=== PATIENT | female | born 1990 | race Two or more races ===

== ENCOUNTER 2019-04-30 10:44 | Inpatient (IN) | payer MEDICAID ==
[~2019-04-30] VITALS: Ht 160 cm; Wt 60.3 kg
--- NOTE | 2019-04-30 11:00 | NUR ---
ED Nurse Note: PATIENT WALKED INTO ED FROM HOME C/O DIFFICULTY BREATHING, DIFFUSE CHEST PAIN FOR 3 DAYS. PATIENT IS ALERT AWAKE X4 AMBULATORY, SPEAKING IN FULL SENTENCES. PATIENT ON A [employer].
[2019-04-30 11:12] VITALS: BP 111/81
[2019-04-30] MEDS ORDERED: Albuterol ud Inhalation HHN ONE (11:45)
--- NOTE | 2019-04-30 12:04 | Diagnostic Imaging Report ---
Indication: Redness of breath Technique: XRAY Chest 1v Comparison: None Findings: Heart size and mediastinal contours are within normal limits for AP technique. There is no focal airspace consolidation, pneumothorax or pleural effusion. Osseous structures demonstrate no acute abnormality. Impression: No radiographic evidence of acute cardiopulmonary disease.
--- NOTE | 2019-04-30 12:18 | NUR ---
ED Nurse Note: RT at bedside for breathing treatment.
--- NOTE | 2019-04-30 12:30 | NUR ---
ED Nurse Note: RT/ Dr. Patel notified for patient's HR going up to 120-140. Discontinued albuterol tx. Dr. Patel notified about that the patient is anxious.
[2019-04-30 12:54] LABS: BASOPHILS % (AUTO) 0.7 % (0.0-2.0); EOSINOPHILS % (AUTO) 1.7 % (0.0-3.0); HEMOGLOBIN 14.5 G/DL (12.0-16.0); MEAN CORPUSCULAR VOLUME 88 FL (80-99); MONOCYTES % (AUTO) 5.2 % (1.0-10.0); NEUTROPHILS % (AUTO) 61.5 % (45.0-75.0); PLATELET COUNT 328 K/UL (150-450); RED BLOOD COUNT 4.88 M/UL (4.20-5.40); RED CELL DISTRIBUTION WIDTH 11.4 % (11.6-14.8); WHITE BLOOD COUNT 10.5 K/UL (4.8-10.8)
[2019-04-30 13:04] LABS: ANION GAP 12 mmol/L (5-15); BLOOD UREA NITROGEN 16 mg/dL (7-18); CALCIUM 9.6 MG/DL (8.5-10.1); CARBON DIOXIDE 24 MMOL/L (21-32); CHLORIDE 103 MMOL/L (98-107); CREATININE 0.6 MG/DL (0.55-1.30); SODIUM 139 MMOL/L (136-145)
[2019-04-30 13:08] LABS: ALANINE AMINOTRANSFERASE 39 U/L (12-78); ALBUMIN 3.9 G/DL (3.4-5.0); ALBUMIN/GLOBULIN RATIO 0.9 (1.0-2.7); ALKALINE PHOSPHATASE 84 U/L (46-116); ASPARTATE AMINO TRANSFERASE 19 U/L (15-37); BILIRUBIN,TOTAL 0.5 MG/DL (0.2-1.0)
[2019-04-30] MEDS ORDERED: LORazepam 1mg tab ONE (13:08)
[2019-04-30] MEDS ORDERED: LORazepam 1mg tab ORAL ONE (13:15)
[2019-04-30 13:29] VITALS: BP 160/125
[2019-04-30 14:11] VITALS: BP 107/63
--- NOTE | 2019-04-30 14:11 | NUR ---
ED Nurse Note: patient resting in bed.
[2019-04-30] MEDS ORDERED: Omnipaque-300 100ml vial INJ ONE (14:45)
--- NOTE | 2019-04-30 15:32 | NUR ---
ED Nurse Note: urine and additional blood work sent to lab. per Dr. Bundy, patient is ok to go up now and he will follow up with the CTA
[2019-04-30 15:37] VITALS: BP 106/68
--- NOTE | 2019-04-30 15:37 | NUR ---
ED Nurse Note: patient transferred to 2E with all of the belongings, on ACLS protocol.
--- NOTE | 2019-04-30 15:38 | Emergency Room Report ---
History of Present Illness General Chief Complaint: Upper Respiratory Illness Source: Patient Present Illness HPI Patient states that for the past 3 days she has had shortness of breath and felt congested. She denies cough. She states she has pain with inspiration and expiration. She also feels very anxious. She feels lightheaded. She denies fever or chills. She denies nausea or vomiting. She denies sore throat. She denies headache or neck pain. She has no other complaints. Allergies: Coded Allergies: No Known Allergies (Unverified , 04/30/19) Patient History Past Medical History: none, see triage record Social History: Denies: smoking, alcohol use, drug use Reviewed Nursing Documentation: PMH: Agreed; PSxH: Agreed Nursing Documentation-PMH Hx Cardiac Problems: No - bronchitis Review of Systems All Other Systems: negative except mentioned in HPI Physical Exam Vital Signs Date Time Temp Pulse Resp B/P (MAP) Pulse Ox O2 Delivery O2 Flow Rate FiO2 04/30/19 10:51 98.2 94 16 120/85 (97) 96 Room Air Sp02 EP Interpretation: reviewed, normal General Appearance: no apparent distress, alert, GCS 15, non-toxic Head: normocephalic, atraumatic Eyes: bilateral eye normal inspection, bilateral eye PERRL ENT: hearing grossly normal, normal pharynx, no angioedema, normal voice Neck: full range of motion, supple/symm/no masses Respiratory: chest non-tender, lungs clear, normal breath sounds, no respiratory distress, no retraction, no accessory muscle use, speaking full sentences Cardiovascular #1: no edema, tachycardia Gastrointestinal: normal bowel sounds, non tender, soft, non-distended, no guarding, no rebound Rectal: deferred Musculoskeletal: back normal, normal range of motion, gait/station normal, non- tender Neurologic: alert, motor strength/tone normal, oriented x3, sensory intact, responsive, speech normal Psychiatric: judgement/insight normal, memory normal, mood/affect normal, no suicidal/homicidal ideation Skin: no rash, normal color Medical Decision Making Diagnostic Impression: Primary Impression: Shortness of breath Additional Impressions: Chest pain Tachycardia ER Course This patient's heart rate was incredibly variable. Initial heart rate was in the 120s to 130s, however, the patient will regularly spike into the 160s to 180s. Patient also seemed very anxious but it was difficult to determine whether the patient was anxious first or after her heart rate elevated. I was unable to obtain a twelve-lead EKG during 1 of the episodes because by the time the twelve-lead EKG was performed the patient was in a sinus tachycardia in the 130s. The patient may have inappropriate sinus tachycardia, however, given how rapid her heart rate and how variable the heart rate was throughout her ED course, I felt that she should be admitted overnight to record her telemetry and be further assessed by cardiology. The patient was very uncomfortable during the rapid tachycardia episodes and she has no medical insurance and is unable to follow-up as an outpatient in a timely manner. Therefore, I felt this patient should be admitted. Chest x-ray, lab work, CT chest, thyroid panel , d-dimer were all unremarkable. She is admitted for further evaluation and treatment. Laboratory Tests Test 04/30/19 12:41 04/30/19 15:05 04/30/19 15:26 White Blood Count 10.5 K/UL (4.8-10.8) Red Blood Count 4.88 M/UL (4.20-5.40) Hemoglobin 14.5 G/DL (12.0-16.0) Hematocrit 43.0 % (37.0-47.0) Mean Corpuscular Volume 88 FL (80-99) Mean Corpuscular Hemoglobin 29.7 PG (27.0-31.0) Mean Corpuscular Hemoglobin Concent 33.8 G/DL (32.0-36.0) Red Cell Distribution Width 11.4 % (11.6-14.8) L Platelet Count 328 K/UL (150-450) Mean Platelet Volume 5.3 FL (6.5-10.1) L Neutrophils (%) (Auto) 61.5 % (45.0-75.0) Lymphocytes (%) (Auto) 31.0 % (20.0-45.0) Monocytes (%) (Auto) 5.2 % (1.0-10.0) Eosinophils (%) (Auto) 1.7 % (0.0-3.0) Basophils (%) (Auto) 0.7 % (0.0-2.0) D-Dimer < 0.19 mg/L FEU Sodium Level 139 MMOL/L (136-145) Potassium Level 3.0 MMOL/L (3.5-5.1) L Chloride Level 103 MMOL/L (98-107) Carbon Dioxide Level 24 MMOL/L (21-32) Anion Gap 12 mmol/L (5-15) Blood Urea Nitrogen 16 mg/dL (7-18) Creatinine 0.6 MG/DL (0.55-1.30) Estimate Glomerular Filtration Rate > 60 mL/min (>60) Glucose Level 96 MG/DL (74-106) Calcium Level 9.6 MG/DL (8.5-10.1) Total Bilirubin 0.5 MG/DL (0.2-1.0) Aspartate Amino Transferase (AST) 19 U/L (15-37) Alanine Aminotransferase (ALT) 39 U/L (12-78) Alkaline Phosphatase 84 U/L (46-116) Total Protein 8.2 G/DL (6.4-8.2) Albumin 3.9 G/DL (3.4-5.0) Globulin 4.3 g/dL Albumin/Globulin Ratio 0.9 (1.0-2.7) L Urine Color Pale yellow Urine Appearance Slightly cloudy Urine pH 6 (4.5-8.0) Urine Specific [place] 1.010 (1.005-1.035) Urine Protein 1+ (NEGATIVE) H Urine Glucose (UA) Negative (NEGATIVE) Urine Ketones Negative (NEGATIVE) Urine Blood 5+ (NEGATIVE) H Urine Nitrite Negative (NEGATIVE) Urine Bilirubin Negative (NEGATIVE) Urine Urobilinogen Normal MG/DL (0.0-1.0) Urine Leukocyte Esterase Negative (NEGATIVE) Urine RBC 20-30 /HPF (0 - 2) H Urine WBC 0-2 /HPF (0 - 2) Urine Squamous Epithelial Cells Occasional /LPF Urine Bacteria Occasional /HPF (NONE) Urine HCG, Qualitative Negative (NEGATIVE) Urine Opiates Screen Negative (NEGATIVE) Urine Barbiturates Screen Negative (NEGATIVE) Phencyclidine (PCP) Screen Negative (NEGATIVE) Urine Amphetamines Screen Negative (NEGATIVE) Urine Benzodiazepines Screen Negative (NEGATIVE) Urine Cocaine Screen Negative (NEGATIVE) Urine Marijuana (THC) Screen Negative (NEGATIVE) Troponin I 0.000 ng/mL (0.000-0.056) Thyroid Stimulating Hormone (TSH) 0.282 uiU/mL (0.358-3.740) Free Thyroxine 0.99 NG/DL (0.76-1.46) Free Triiodothyronine 3.1 pg/mL (2.3-4.2) Laboratory Tests Test 04/30/19 12:41 04/30/19 15:05 White Blood Count 10.5 K/UL (4.8-10.8) Red Blood Count 4.88 M/UL (4.20-5.40) Hemoglobin 14.5 G/DL (12.0-16.0) Hematocrit 43.0 % (37.0-47.0) Mean Corpuscular Volume 88 FL (80-99) Mean Corpuscular Hemoglobin 29.7 PG (27.0-31.0) Mean Corpuscular Hemoglobin Concent 33.8 G/DL (32.0-36.0) Red Cell Distribution Width 11.4 % (11.6-14.8) L Platelet Count 328 K/UL (150-450) Mean Platelet Volume 5.3 FL (6.5-10.1) L Neutrophils (%) (Auto) 61.5 % (45.0-75.0) Lymphocytes (%) (Auto) 31.0 % (20.0-45.0) Monocytes (%) (Auto) 5.2 % (1.0-10.0) Eosinophils (%) (Auto) 1.7 % (0.0-3.0) Basophils (%) (Auto) 0.7 % (0.0-2.0) D-Dimer < 0.19 mg/L FEU Sodium Level 139 MMOL/L (136-145) Potassium Level 3.0 MMOL/L (3.5-5.1) L Chloride Level 103 MMOL/L (98-107) Carbon Dioxide Level 24 MMOL/L (21-32) Anion Gap 12 mmol/L (5-15) Blood Urea Nitrogen 16 mg/dL (7-18) Creatinine 0.6 MG/DL (0.55-1.30) Estimate Glomerular Filtration Rate > 60 mL/min (>60) Glucose Level 96 MG/DL (74-106) Calcium Level 9.6 MG/DL (8.5-10.1) Total Bilirubin 0.5 MG/DL (0.2-1.0) Aspartate Amino Transferase (AST) 19 U/L (15-37) Alanine Aminotransferase (ALT) 39 U/L (12-78) Alkaline Phosphatase 84 U/L (46-116) Total Protein 8.2 G/DL (6.4-8.2) Albumin 3.9 G/DL (3.4-5.0) Globulin 4.3 g/dL Albumin/Globulin Ratio 0.9 (1.0-2.7) L Urine Color Pending Urine Appearance Pending Urine pH Pending Urine Specific [place] Pending Urine Protein Pending Urine Glucose (UA) Pending Urine Ketones Pending Urine Blood Pending Urine Nitrite Pending Urine Bilirubin Pending Urine Urobilinogen Pending Urine Leukocyte Esterase Pending Urine HCG, Qualitative Pending EKG Diagnostic Results Rate: tachycardiac Rhythm: other - S.tachycardia ST Segments: no acute changes Rhythm Strip Diag. Results EP Interpretation: yes Rate: 130's Rhythm: no PVC's, no ectopy, other - S.tachycardia Chest X-Ray Diagnostic Results Chest X-Ray Diagnostic Results : Chest X-Ray Ordered: Yes # of Views/Limited/Complete: 1 View Indication: Chest Pain EP Interpretation: Yes Interpretation: no consolidation, no effusion, no pneumothorax, no acute cardiopulmonary disease Impression: No acute disease Electronically Signed by: Lana Patel DO CT/MRI/US Diagnostic Results CT/MRI/US Diagnostic Results : Imaging Test Ordered: CT Chest Impression No PE. See official report in the electronic medical record. Last Vital Signs Date Time Temp Pulse Resp B/P (MAP) Pulse Ox O2 Delivery O2 Flow Rate FiO2 04/30/19 14:11 98.2 103 20 107/63 99 Room Air Disposition: ADMITTED INPATIENT Condition: Stable Scripts No Active Prescriptions or Reported Meds Referrals: NOT CHOSEN IPA/,REFERRING (PCP) Lana Patel DO Apr 30, 2019 15:38
--- NOTE | 2019-04-30 15:40 | NUR ---
NURSE NOTES: Received report from Adali Whittaker RN. Patient transferred from ED to tele. monitoring and evaluation advisor on, Patient AOx4, on room air, ST with HR 110. Endorsed patient schedule for CTA chest. VS at the time of arrival T 97.5, HR 110, RR 16, O2 98%, BP 119/75. Patient skin is intact, able to amb[facility] IV on Right AC 20G, asymptomatic, patent, intact. Bed in lowest position, side rails upx2, call light within reach. Will continue to monitor.
[2019-04-30 15:42] LABS: APPEARANCE,URINE SLIGHTLY CLOUDY; BILIRUBIN, URINE NEGATIVE (NEGATIVE); COLOR,URINE PALE YELLOW; GLUCOSE, URINE (UA) NEGATIVE (NEGATIVE); KETONES,URINE NEGATIVE (NEGATIVE); LEUKOCYTE ESTERASE ,URINE NEGATIVE (NEGATIVE); NITRITE,URINE NEGATIVE (NEGATIVE); PH,URINE 6 (4.5-8.0); PROTEIN,URINE 1+ (NEGATIVE); UROBILINOGEN,URINE NORMAL MG/DL (0.0-1.0)
--- NOTE | 2019-04-30 17:22 | NUR ---
NURSE NOTES: Order received from Dr. Trimble. Order acknowledged, noted, and carried out.
[2019-04-30] MEDS ORDERED: Morphine Sulfate 2mg/ml Inj(IV/IM USE ONLY) IVP PRN (17:30)
[2019-04-30] MEDS ORDERED: LORazepam Inj 2mg/ml 1ml IV PRN (17:30)
[2019-04-30] MEDS ORDERED: Miralax 17gm pkt ORAL PRN (17:30)
[2019-04-30] MEDS ORDERED: Zolpidem 5mg tab ORAL PRN (17:30)
--- NOTE | 2019-04-30 17:51 | History & Physical ---
History and Physical History & Physicial Dictated for Int Med-DR Vallejo no. [id number]. Timoteo Godwin MD Apr 30, 2019 17:51
--- NOTE | 2019-04-30 18:00 | NUR ---
NURSE NOTES: Dr. Trimble made aware of K level today, no new order given at this time, Will continue to monitor.
[2019-04-30] MEDS: Docusate 100mg cap ORAL SCH (18:25)
[2019-04-30] MEDS: Lactulose 20gm/30ml UDC ORAL SCH (18:26)
--- NOTE | 2019-04-30 19:25 | NUR ---
NURSE NOTES: Received pt and report from JENNIFER Ybarra. Observed pt resting in bed with both eyes open and watching television. Pt is A/Ox4. conveyor monitor is in placed, IV site intact, asymptomatic, and patent. Bed is in the lowest position and locked. Call light and bedside table is within reach. No signs/symptoms of acute distress noted at this time. Will continue plan of care.
--- NOTE | 2019-04-30 19:35 | NUR ---
HAND-OFF: Report given to JENNIFER Hook.
[2019-04-30 20:00] VITALS: BP 111/76
--- NOTE | 2019-04-30 20:25 | Cardiology Progress Note ---
Assessment/Plan Assessment/Plan [id number] Objective Last 24 Hour Vital Signs Date Time Temp Pulse Resp B/P (MAP) Pulse Ox O2 Delivery O2 Flow Rate FiO2 04/30/19 16:16 Room Air 04/30/19 16:00 110 04/30/19 15:37 98.2 112 22 106/68 99 Room Air 04/30/19 15:37 98.2 112 22 106/68 99 Room Air 04/30/19 14:11 98.2 103 20 107/63 99 Room Air 04/30/19 14:08 103 20 Room Air 04/30/19 13:29 98.2 118 19 160/125 93 Room Air 04/30/19 12:18 81 17 100 Room Air 93 15 100 04/30/19 11:12 98.2 93 18 111/81 98 Room Air 04/30/19 10:51 98.2 94 16 120/85 (97) 96 Room Air Laboratory Tests Test 04/30/19 12:41 04/30/19 15:05 04/30/19 15:26 White Blood Count 10.5 K/UL (4.8-10.8) Red Blood Count 4.88 M/UL (4.20-5.40) Hemoglobin 14.5 G/DL (12.0-16.0) Hematocrit 43.0 % (37.0-47.0) Mean Corpuscular Volume 88 FL (80-99) Mean Corpuscular Hemoglobin 29.7 PG (27.0-31.0) Mean Corpuscular Hemoglobin Concent 33.8 G/DL (32.0-36.0) Red Cell Distribution Width 11.4 % (11.6-14.8) L Platelet Count 328 K/UL (150-450) Mean Platelet Volume 5.3 FL (6.5-10.1) L Neutrophils (%) (Auto) 61.5 % (45.0-75.0) Lymphocytes (%) (Auto) 31.0 % (20.0-45.0) Monocytes (%) (Auto) 5.2 % (1.0-10.0) Eosinophils (%) (Auto) 1.7 % (0.0-3.0) Basophils (%) (Auto) 0.7 % (0.0-2.0) D-Dimer < 0.19 mg/L FEU Sodium Level 139 MMOL/L (136-145) Potassium Level 3.0 MMOL/L (3.5-5.1) L Chloride Level 103 MMOL/L (98-107) Carbon Dioxide Level 24 MMOL/L (21-32) Anion Gap 12 mmol/L (5-15) Blood Urea Nitrogen 16 mg/dL (7-18) Creatinine 0.6 MG/DL (0.55-1.30) Estimat Glomerular Filtration Rate > 60 mL/min (>60) Glucose Level 96 MG/DL (74-106) Calcium Level 9.6 MG/DL (8.5-10.1) Total Bilirubin 0.5 MG/DL (0.2-1.0) Aspartate Amino Transf (AST/SGOT) 19 U/L (15-37) Alanine Aminotransferase (ALT/SGPT) 39 U/L (12-78) Alkaline Phosphatase 84 U/L (46-116) Total Protein 8.2 G/DL (6.4-8.2) Albumin 3.9 G/DL (3.4-5.0) Globulin 4.3 g/dL Albumin/Globulin Ratio 0.9 (1.0-2.7) L Urine Color Pale yellow Urine Appearance Slightly cloudy Urine pH 6 (4.5-8.0) Urine Specific [place] 1.010 (1.005-1.035) Urine Protein 1+ (NEGATIVE) H Urine Glucose (UA) Negative (NEGATIVE) Urine Ketones Negative (NEGATIVE) Urine Blood 5+ (NEGATIVE) H Urine Nitrite Negative (NEGATIVE) Urine Bilirubin Negative (NEGATIVE) Urine Urobilinogen Normal MG/DL (0.0-1.0) Urine Leukocyte Esterase Negative (NEGATIVE) Urine RBC 20-30 /HPF (0 - 2) H Urine WBC 0-2 /HPF (0 - 2) Urine Squamous Epithelial Cells Occasional /LPF Urine Bacteria Occasional /HPF (NONE) Urine HCG, Qualitative Negative (NEGATIVE) Urine Opiates Screen Negative (NEGATIVE) Urine Barbiturates Screen Negative (NEGATIVE) Phencyclidine (PCP) Screen Negative (NEGATIVE) Urine Amphetamines Screen Negative (NEGATIVE) Urine Benzodiazepines Screen Negative (NEGATIVE) Urine Cocaine Screen Negative (NEGATIVE) Urine Marijuana (THC) Screen Negative (NEGATIVE) Troponin I 0.000 ng/mL (0.000-0.056) Thyroid Stimulating Hormone (TSH) 0.282 uiU/mL (0.358-3.740) Free Thyroxine 0.99 NG/DL (0.76-1.46) Free Triiodothyronine 3.1 pg/mL (2.3-4.2) Nakul Rodriguez MD Apr 30, 2019 20:25
--- NOTE | 2019-04-30 20:48 | NUR ---
NURSE NOTES: Received orders from Dr. Charlton. Will note and carry out.
[2019-04-30] MEDS ORDERED: Sodium Chloride for KCL Premix X 1hr IV SCH (21:00)
[2019-04-30] MEDS: NS w/KCl 20mEq 1000ml 1,000 ML IV SCH (21:26)
--- NOTE | 2019-04-30 21:30 | Consultation ---
DATE OF CONSULTATION: 04/30/2019 CARDIOLOGY CONSULTATION CONSULTING PHYSICIAN: Nakul Rodriguez M.D. REFERRING PHYSICIAN: Faraz Trimble M.D. HISTORY OF PRESENT ILLNESS: This is a 28-year-old female with history of congestion, shortness of breath, and chest pain that has been going on for approximately 3 days. Congestion wakes her up at night and the pain seems to be little worse when she takes a deep breath, but the pain has been going on for approximately 3 days. No orthopnea. Uses one pillow at night. She may have had some PND. When she stands up, she gets short of breath. When she walks, she does not seem to be short of breath. There is no palpitations. No dizziness or lightheadedness. Denies any other medical problems. SOCIAL HISTORY: She does not smoke, drink, or use drugs. MEDICATIONS: None. REVIEW OF SYSTEMS: GASTROINTESTINAL: Negative. GENITOURINARY: Negative. PULMONARY: Negative. CONSTITUTIONAL: Negative. NEUROLOGIC: Negative. PHYSICAL EXAMINATION: GENERAL: Shows to be young female, in no respiratory distress. Overweight. NECK: Supple. No jugular venous distention. LUNGS: Clear to auscultation percussion. No CVA or spine tenderness. CARDIAC: Regular rate and rhythm. No heaves, thrills, gallops, or rubs noted. ABDOMEN: Soft, nontender. Positive bowel sounds. EXTREMITIES: There is no clubbing, cyanosis, or edema. In the emergency room, she apparently had an episode of tachycardia, felt to be sinus, questionable SVT although was able to be reported. The patient did have a x-ray in the emergency room that showed no electrocardiographic evidence of acute disease. White count 10.5, hemoglobin 14.5, and platelet count of 328. Sodium is 139, potassium 3.0, chloride 103, bicarb 24, BUN 16, creatinine 0.6, and glucose of 96. Liver function tests are normal. TSH is 0.282, T4 0.99, T3 of 3.0. Troponin of 0.00. D-dimer was normal. Tox screen was normal. Urinalysis shows 20 to 30 rbc's, 0 to 2 wbc's. A chest x-ray was showing no evidence of acute cardiopulmonary disease. EKG shows sinus tachycardia at a rate of 138, no ST or T-wave abnormalities of any significant degree. ASSESSMENT AND PLAN: 1. Chest pain. 2. Sinus tachycardia. 3. Congestion. This patient was seen in cardiology consultation. Some of the symptoms that she described does not appear physiologic. Nevertheless workup was initiated. The fact that she has a normal D-dimers, we can guess it as a pulmonary embolism and/or a deep venous thrombosis. She will have serial enzymes. An echocardiogram will be ordered for tomorrow morning. She will be monitored on telemetry to see if any episodes of tachycardia were ensued. TSH was normal. Her thyroid function tests otherwise were unremarkable. I will follow the patient along with you. Nakul Rodriguez M.D. DR: CIERRA JOB#: [id number] CC:
[2019-05-01] VITALS: BP 108/68
[2019-05-01 04:00] VITALS: BP 107/65
--- NOTE | 2019-05-01 04:15 | History and Physical Report ---
DATE OF ADMISSION: 04/30/2019 CHIEF COMPLAINT: The patient is a 28-year-old female, who presents with a chief complaint of shortness of breath and nasal congestion. HISTORY OF PRESENT ILLNESS: The patient states this began approximately 3 weeks ago. The patient had cough and pharyngitis. The patient was given amoxicillin for 10 days. The patient finished amoxicillin one week previously. The patient then began to experience left-sided sinus congestion. The patient is unable to breathe out of the left sinus. The patient also complains of shortness of breath. The patient states she has chest pain with deep inspiration. The patient presented to [place] emergency room. The patient is admitted with pleuritic chest pain and probable bronchitis. REVIEW OF SYSTEMS: CONSTITUTIONAL: The patient denies weight loss or weight gain. The patient denies fever or chills. HEENT: The patient denies ear or throat pain. The patient denies headache. CARDIOVASCULAR: The patient denies palpitations or chest pain. CHEST: The patient complains of shortness of breath as above. The patient denies wheezes. ABDOMEN: The patient denies nausea, vomiting, diarrhea, or constipation. GENITOURINARY: The patient denies dysuria or increased frequency of urination. NEUROMUSCULAR: The patient denies seizures or generalized weakness. CHEST: The patient complains of shortness of breath as above. The patient complains of pleuritic chest pain as above. The patient denies wheezes. ABDOMEN: The patient denies nausea, vomiting, diarrhea, or constipation. GENITOURINARY: The patient denies dysuria or increased frequency of urination. NEUROMUSCULAR: The patient denies seizures or generalized weakness. PAST MEDICAL HISTORY: The patient denies. PAST SURGICAL HISTORY: The patient denies. CURRENT MEDICATIONS: The patient denies. ALLERGIES: No known drug allergies. 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 The patient denies tobacco or alcohol use. PHYSICAL EXAMINATION: VITAL SIGNS: Temperature 98.2, respirations 19, pulse 81 to 118, blood pressure 160/125. GENERAL: The patient is well-developed and well-nourished female, in no apparent distress. HEENT: Eyes, pupils are equal and responsive to light and accommodation. Extraocular movements are intact. NECK: Supple without lymphadenopathy. CHEST: Lungs are clear to auscultation bilaterally without wheezes or rales. CARDIOVASCULAR: Regular rate. S1 and S2 are normal without murmurs, rubs, or gallops. ABDOMEN: Soft, nontender, and nondistended. Positive bowel sounds. No evidence of hepatosplenomegaly. Currently, no rebound or guarding noted. EXTREMITIES: Negative for clubbing, cyanosis, or edema. RECTAL/GENITAL: Not performed. NEUROLOGIC: Cranial nerves II through XII are grossly intact without focal deficits. Motor strength is 5/5 bilaterally. Deep tendon reflexes are 2+ plantar. LABORATORY STUDIES: WBC 10.5, hemoglobin 14.5, hematocrit 43.0, platelets 328,000. Sodium 139, potassium 3.0, chloride 103, CO2 24, BUN 16, creatinine 0.6, glucose 96. Troponin 0.0. Chest x-ray is reported as no acute disease. ASSESSMENT: This is a 28-year-old female with: 1. Shortness of breath. 2. Pleuritic chest pain. 3. Hypertension. TREATMENT: 1. Shortness of breath/pleuritic chest pain. A Pulmonary consultation has been obtained with Dr. Faraz Trimble. This may be secondary to bronchitis. We will follow recommendations of Pulmonary. 2. Hypertension may be secondary to agitation. Clonidine will be offered as needed for systolic greater than 150 or diastolic greater than 100. Timoteo Godwin M.D. DR: Marcell JOB#: [id number] CC:
--- NOTE | 2019-05-01 07:30 | NUR ---
NURSE NOTES: Report received from Miladys RODRIGUEZ. Pt in bed alert and oriented x4. No c/o pain. Denied SOB. Bed in lowest position and locked. Call light within easy reach. IV in RAC 20G running with NS w/KCL @75ML/HR patent and locked. Will continue to plan of care.
--- NOTE | 2019-05-01 07:47 | NUR ---
HAND-OFF: Report given to JENNIFER Jain. Plan of care endorsed.
[2019-05-01 07:58] LABS: BASOPHILS % (AUTO) 1.1 % (0.0-2.0); EOSINOPHILS % (AUTO) 3.5 % (0.0-3.0); HEMATOCRIT 37.7 % (37.0-47.0); HEMOGLOBIN 12.8 G/DL (12.0-16.0); LYMPHOCYTES % (AUTO) 36.7 % (20.0-45.0); MEAN CORPUSCULAR VOLUME 88 FL (80-99); MONOCYTES % (AUTO) 6.7 % (1.0-10.0); PLATELET COUNT 324 K/UL (150-450); RED BLOOD COUNT 4.27 M/UL (4.20-5.40); RED CELL DISTRIBUTION WIDTH 11.8 % (11.6-14.8); WHITE BLOOD COUNT 6.7 K/UL (4.8-10.8)
[2019-05-01 08:00] VITALS: BP 105/70
--- NOTE | 2019-05-01 08:30 | Diagnostic Imaging Report ---
Indication: Chest pain, shortness of breath Technique: CT pulmonary angiogram performed utilizing automated exposure control with intravenous contrast. Axial, sagittal and coronal reconstructions were obtained. 3-D volumetric reconstructions were also performed. CT dose: Total DLP 721.8 mGycm; CTDI vol 46.3 mGy Comparison: None Findings: No pulmonary embolism is identified. The main pulmonary artery is normal in caliber. The thoracic aorta is normal in caliber. There is no evidence of aortic dissection. The origins of the great vessels are widely patent. Imaged portions of the bilateral vertebral, common carotid and subclavian arteries patent and normal in caliber. Imaged portions of the abdominal aorta normal in caliber. Visualized visceral vessels are unremarkable. No visceral artery aneurysm identified. Heart size within normal limits. No CT evidence of right heart strain. There is no pericardial effusion. No pathologically enlarged hilar or mediastinal lymphadenopathy. Thyroid is normal in appearance. Minimal dependent atelectasis noted in the posterior lower lobes bilaterally. There is no focal airspace consolidation, pleural effusion or pneumothorax. Partially imaged upper abdominal structures are grossly unremarkable without evidence of acute abnormality. No acute fracture is identified. There is asymmetry of the visualized breast tissue with some asymmetric increased volume of glandular tissue on the right. IMPRESSION: * No pulmonary embolism. * No thoracic aortic aneurysm or dissection. * Minimal dependent atelectatic changes at the lung bases. No focal airspace consolidation, pleural effusion or pneumothorax. * Slight asymmetry of the breast tissue. Recommend correlation with breast exam. Possible follow-up breast ultrasound can be obtained as clinically indicated. The CT scanner at [facility] is accredited by the [employer] and the scans are performed using protocols designed to limit radiation exposure to as low as reasonably achievable to attain images of sufficient resolution adequate for diagnostic evaluation.
[2019-05-01] MEDS: Docusate 100mg cap ORAL SCH ×3 (09:00→13:00)
[2019-05-01] MEDS: Lactulose 20gm/30ml UDC ORAL SCH ×3 (09:00→13:00)
[2019-05-01 09:20] LABS: ALANINE AMINOTRANSFERASE 43 U/L (12-78); ALBUMIN 3.3 G/DL (3.4-5.0); ALBUMIN/GLOBULIN RATIO 0.9 (1.0-2.7); ALKALINE PHOSPHATASE 74 U/L (46-116); ANION GAP 7 mmol/L (5-15); ASPARTATE AMINO TRANSFERASE 18 U/L (15-37); BILIRUBIN,TOTAL 0.3 MG/DL (0.2-1.0); BLOOD UREA NITROGEN 9 mg/dL (7-18); CALCIUM 8.8 MG/DL (8.5-10.1); CARBON DIOXIDE 25 MMOL/L (21-32); CHLORIDE 108 MMOL/L (98-107); CHOLESTEROL 217 MG/DL (< 200); CREATININE 0.5 MG/DL (0.55-1.30); HDL CHOLESTEROL 41 MG/DL (40-60); POTASSIUM 4.2 MMOL/L (3.5-5.1); SODIUM 140 MMOL/L (136-145); TRIGLYCERIDES 83 MG/DL (30-150)
[2019-05-01] MEDS: NS w/KCl 20mEq 1000ml 1,000 ML IV SCH (09:41)
[2019-05-01 12:00] VITALS: BP 113/68
--- NOTE | 2019-05-01 14:56 | Cardiology Report ---
APPROVED REPORT EXAM: Two-dimensional and M-mode echocardiogram with Doppler and color Doppler. INDICATION Chest Pain M-Mode DIMENSIONS IVSd0.6 (0.7-1.1cm)Left Atrium (MM)3.2 (1.6-4.0cm) LVDd4.6 (3.5-5.6cm)Aortic Root2.8 (2.0-3.7cm) PWd0.7 (0.7-1.1cm)Aortic Cusp Exc.1.9 (1.5-2.0cm) LVDs3.3 (2.5-4.0cm) PWs1.4 cm Normal left ventricular chamber size, systolic function and wall motion. Left ventricular ejection fraction estimated to be 55-60 %. No evidence of left ventricular hypertrophy. No evidence of pericardial effusion. All other cardiac chamber sizes are within normal limits. Normal appearing aortic, mitral, pulmonic and tricuspid valves. Mild mitral annulus and aortic root calcification. IVC at normal size with physiologic collapse. A color flow and spectral Doppler study was performed and revealed: Trace mitral regurgitation. Mitral inflow indicates normal left ventricular diastolic function. Trace tricuspid regurgitation. Tricuspid systolic velocities suggests peak right ventricular systolic pressure of 18 mmHg. Trace pulmonic regurgitation present.
--- NOTE | 2019-05-01 15:13 | NUR ---
CASE MANAGEMENT: INITIAL REVIEW 28 YR OLD FEMALE FROM HOME CC: UPPER RESP. ILLNESS ; DYSPNEA SI: TACHYCARDIA . SOB 98.2 94 16 120/85 96% ON RA TSH 0.282 IS: IVF NS BOLUS X1 PROVENTIL HHN X1 ATIVAN PO X1 \: 2E TELE UNIT DCP: HOME WHEN MEDICALLY CLEARED PLAN: CXRAY CTA CHEST ECHO
--- NOTE | 2019-05-01 15:18 | Discharge Summary ---
Discharge Summary Hospital Course Date of Admission Apr 30, 2019 at 14:17 Date of Discharge Admitting Diagnosis tachycardia HPI Paula Flor is a 28 year old female who was admitted on Apr 30, 2019 at 14:17 for Tachycardia Hospital Course Discharge Discharge Disposition Patient was discharged to Franklyn Vallejo MD May 01, 2019 15:18
--- NOTE | 2019-05-01 15:55 | NUR ---
Discharge: Patient is being discharged from medical care. Awake, alert and oriented x4. After care instructions, including discharge instructions and patient education. Patient requested medical records and helped the patient to fill out the medical records release form. No c/o pain. No acute distress noted. Patient verbalized understanding of After care instructions; at this time patient does not request medications, equipment or placement. The patient discharged with her and her children. Patient signed patient consent in the medical record for patient destination upon discharge. Recommended the patient to see a primary physician after discharge from [facility] [place] for breast exam. All medical devices such as IV, night monitor and ID band were removed. Patient ambulated out with all personal belongings with steady gait with RN's assist.
--- NOTE | 2019-05-02 03:00 | Discharge Summary ---
DATE OF ADMISSION: 04/30/2019 DATE OF DISCHARGE: 05/01/2019 HOSPITAL COURSE: This is a 28-year-old female, who denies any past medical history and past surgical history, who has presented to the hospital complaining about the chest pain and shortness of breath. Shortly after initial evaluation, the patient was admitted to the hospital with shortness of breath and pleuritic chest pain and hypertension and tachycardia. Throughout the hospital course, the patient was consulted with Dr. Nakul Rodriguez from Cardiology. The patient has had extensive workup done including a CT of the chest and thorax with essentially no pulmonary embolism or no thoracic aortic aneurysm or dissection. Minimal dependent atelectasis was noted. Changes of the lung base. No focal airspace consolidation, pleural effusion, or pneumothorax. The patient's status gradually improved and subsequently was discharged home today to be followed by as outpatient with her primary physician. The patient had a 2D echo that showed ejection fraction of 55 to 60 percent. No evidence of left ventricular hypertrophy. No evidence of pericardial effusion. Trace mitral regurgitation. FINAL DIAGNOSES: 1. Pleuritic chest pain. 2. Shortness of breath. 3. Upper respiratory infection. MEDICATION AT DISCHARGE: Continue discharge medication list. ACTIVITY: As tolerated. DIET: Regular diet. FOLLOWUP: The patient is advised to follow up with the primary physician within one week. Franklyn Vallejo M.D. DR: ELLY JOB#: [id number] CC:
[2019-05-02] MEDS ORDERED: Fleet's Mineral Oil Enema RECTAL SCH (09:00)
== END 2019-05-01 15:55 | disposition home or self-care (01) | DRG 145 ==
LOC: EMR 11:38 → 2E 14:17 → EDBEDREQ 15:16
DX: R07.1 Chest pain on breathing (principal); R06.02 Shortness of breath; R00.0 Tachycardia, unspecified; I10 Essential (primary) hypertension; J06.9 Acute upper respiratory infection, unspecified
CPT/HCPCS: 36415; 71045; 71275; 80053; 80061; 80307; 81003; 81025; 83735; 83880; 84439; 84443; 84481; 84484; 85025; 85379; 93005; 93306; 96360; 96361; 99285; J7030; J8499

== ENCOUNTER 2020-02-16 21:45 | Emergency (ER) | payer MEDICAID ==
[~2020-02-16] VITALS: Ht 160 cm; Wt 65.3 kg
--- NOTE | 2020-02-16 21:54 | NUR ---
ED Nurse Note: Patient walked in from home d/t headache on bilateral temporal area that started 2 weeks ago, intermittent but worsened today. Patient reports aching pain 8/10, nonradiating. Patient denies nausea, vomiting, diarrhea. Patient aao x 4 and ambulatory with steady gait. Patient stable during assessment, no acute distress noted.
[2020-02-16 21:55] VITALS: BP 125/82
--- NOTE | 2020-02-16 22:08 | NUR ---
ED Nurse Note: ERMD at bedside
[2020-02-16] MEDS ORDERED: Acetaminophen 500mg (ES) tab ORAL ONE (22:15)
[2020-02-16] MEDS ORDERED: Ketorolac 30mg Inj IM ONE (22:15)
[2020-02-16] MEDS ORDERED: ACETAMINOPHEN500 M3 ORAL (22:58)
[2020-02-16 23:27] VITALS: BP 123/79
--- NOTE | 2020-02-16 23:27 | NUR ---
ER DISCHARGE NOTE: Patient is cleared to be discharged per ERMD, pt is aox4, on room air, with stable vital signs. pt was given dc and prescription instructions, pt was able to verbalize understanding, pt id band removed. pt is able to ambulate with steady gait. pt took all belongings. pt stable upon discharge.
--- NOTE | 2020-02-17 03:31 | Emergency Room Report ---
History of Present Illness General Chief Complaint: Headache Source: Patient Present Illness HPI 29-year-old female here with 2 weeks of headache. Patient says that she has been feeling headache "like a tight band around my head" on and off for the past 2 weeks. Headache is bilateral, nonpulsating, not associated with any phonophobia or photophobia or vision changes. Says that the pain is around the top of her head, at both temples, radiates down the back of her neck. No neck stiffness or limited range of motion. Denies fevers, chills, vision changes, focal numbness or weakness, chest pain, palpitation, shortness of breath, back pain, abdominal pain, nausea, vomiting, diarrhea, dysuria. She took 400 mg of ibuprofen yesterday with some relief. Has not taken any other medications Allergies: Coded Allergies: No Known Allergies (Unverified , 04/30/19) COVID-19 Screening Contact w/high risk pt: No Experienced COVID-19 symptoms?: No COVID-19 Testing performed [employer] ADMINISTRATOR: No Patient History Now: No Nursing Documentation-[facility] Past Medical History: No Stated History Hx Cardiac Problems: No - bronchitis Hx Cancer: No Hx Gastrointestinal Problems: No Hx Neurological Problems: No Review of Systems All Other Systems: negative except mentioned in HPI Physical Exam Vital Signs Date Time Temp Pulse Resp B/P (MAP) Pulse Ox O2 Delivery O2 Flow Rate FiO2 02/16/20 21:48 98.6 97 18 129/85 (100) 98 Room Air Sp02 EP Interpretation: reviewed, normal General Appearance: no apparent distress, alert, GCS 15, non-toxic Head: normocephalic, atraumatic Eyes: bilateral eye normal inspection, bilateral eye PERRL ENT: hearing grossly normal, normal pharynx, no angioedema, normal voice Neck: full range of motion, supple/symm/no masses Respiratory: chest non-tender, lungs clear, normal breath sounds, speaking full sentences Cardiovascular #1: regular rate, rhythm, no edema Cardiovascular #2: 2+ carotid (R), 2+ carotid (L), 2+ radial (R), 2+ radial (L), 2+ dorsalis pedis (R), 2+ dorsalis pedis (L) Gastrointestinal: normal bowel sounds, non tender, soft, non-distended, no guarding, no rebound Rectal: deferred Genitourinary: normal inspection, no CVA tenderness Musculoskeletal: back normal, normal range of motion, calf tenderness, gait/station normal, non-tender Neurologic: alert, motor strength/tone normal, oriented x3, sensory intact, responsive, speech normal Psychiatric: judgement/insight normal, memory normal, mood/affect normal, no suicidal/homicidal ideation Lymphatic: no adenopathy Medical Decision Making Diagnostic Impression: Primary Impression: Headache ER Course ddx: Tension headache, migraine, cluster, mass-tumor, meningitis, sah, temporal arteritis, glaucoma 29-year-old female here with 2 weeks of headache. Patient had normal physical examination including a normal neurologic examination. She had no meningeal signs and she had normal vital signs and was afebrile. She was given Toradol and acetaminophen with good resolution of her symptoms. Was given a prescription for acetaminophen and information to follow-up with a primary care provider. She was told to come back to the emergency department if she has any worsening headache, vision changes, focal numbness or weakness, altered mental status. She expressed understanding and was discharged. Laboratory Tests Test 02/16/20 21:56 Urine HCG, Qualitative Negative (NEGATIVE) Last Vital Signs Date Time Temp Pulse Resp B/P (MAP) Pulse Ox O2 Delivery O2 Flow Rate FiO2 02/16/20 23:27 98.4 70 17 123/79 100 Room Air Disposition: HOME, SELF-CARE Condition: Stable Scripts Acetaminophen* (ACETAMINOPHEN EXTRA STRENGTH*) 500 Mg Tablet 500 MG ORAL Q6H for 7 Days, #20 TAB Prov: Terrence Valdez M.D. 02/16/20 Referrals: NOT CHOSEN IPA/,REFERRING (PCP) [facility] [place] [facility] Patient Instructions: Tension Headache Terrence Valdez M.D. Feb 17, 2020 03:31
== END 2020-02-16 23:27 | disposition home or self-care (01) ==
LOC: EMR 22:00
DX: R51 Headache (principal)
CPT/HCPCS: 81025; 96372; J1885; Z7502; 99283